=== PATIENT | female | born 1995 | race Two or more races ===

== ENCOUNTER 2020-11-25 10:30 | Day surgery (SDC) | payer OTHER | END 2020-11-25 20:10 | disposition home or self-care (01) | LOC: CIR.AMB 10:30 | PROVIDERS: ATTEND Obstetrics & Gynecology | DX: O02.1 Missed abortion (principal); Z20.822 Contact with and (suspected) exposure to COVID-19 ==

== ENCOUNTER 2021-07-28 09:35 | Emergency (ER) | payer OTHER ==
[~2021-07-28] VITALS: Ht 170.2 cm; Wt 96.6 kg
[2021-07-28] MEDS ORDERED: CIPRO500 MG PO (13:57)
== END 2021-07-28 14:58 | disposition home or self-care (01) ==
LOC: ER 09:35
DX: R30.0 Dysuria (principal); R10.2 Pelvic and perineal pain

== ENCOUNTER 2021-10-13 23:07 | Emergency (ER) | payer OTHER ==
[~2021-10-13] VITALS: Ht 170.2 cm; Wt 95.3 kg
[~2021-10-13 23:07] MED LIST: CIPRO500 MG PO
[2021-10-14] MEDS ORDERED: CEPHALEXIN500 MG PO (04:48)
== END 2021-10-14 05:28 | disposition home or self-care (01) ==
LOC: ER 23:07
DX: O20.0 Threatened abortion (principal); Z3A.08 8 weeks gestation of pregnancy

== ENCOUNTER 2021-11-15 21:15 | Emergency (ER) | payer OTHER ==
[~2021-11-15] VITALS: Ht 170.2 cm; Wt 96.6 kg
[~2021-11-15 21:15] MED LIST changes: +CEPHALEXIN500 MG PO
[2021-11-15] MEDS ORDERED: PROMETRIUM200 MG PO (21:26)
[2021-11-15] MEDS ORDERED: PRENA1 TRUE CO1 EACH PO (21:26)
[2021-11-15] MEDS ORDERED: FOLIC ACID0.8 M1 PO (21:26)
== END 2021-11-15 23:09 | disposition home or self-care (01) ==
LOC: ER 21:15
DX: O20.9 Hemorrhage in early pregnancy, unspecified (principal); Z3A.11 11 weeks gestation of pregnancy

== ENCOUNTER 2021-12-05 20:43 | Emergency (ER) | payer OTHER ==
[~2021-12-05] VITALS: Ht 170.2 cm; Wt 99.8 kg
[~2021-12-05 20:43] MED LIST changes: +FOLIC ACID0.8 M1 PO; +PRENA1 TRUE CO1 EACH PO; +PROMETRIUM200 MG PO
[2021-12-05] MEDS ORDERED: PRENATAL TABLE1 EAC2 PO (20:49)
== END 2021-12-05 22:51 | disposition home or self-care (01) ==
LOC: ER 20:43
DX: O20.8 Other hemorrhage in early pregnancy (principal); Z3A.15 15 weeks gestation of pregnancy; Z37.0 Single live birth

== ENCOUNTER 2022-11-21 12:29 | Outpatient (CLI) | payer OTHER ==
[~2022-11-21 12:29] MED LIST changes: +CETIRIZINE HCL10 MG; +CYCLOBENZAPRINE10 MG PO; +FUSION PLUS CA1 EACH PO; +MONTELUKAST SOD10 MG; +NAPR500T14 PO; +PRENA1 TRUE CO1 EACH; +PRENATAL TABLE1 EAC2 PO; +PRENATAL VITAM1 EAC7; +PROGESTERONE200 MG; +TRAZODONE HCL50 MG PO; +TYLENOL325 MG
== END 2022-11-21 14:00 | disposition home or self-care (01) ==
LOC: PRENATAL 12:29
PROVIDERS: ATTEND Obstetrics & Gynecology Maternal & Fetal Medicine
DX: O36.80X0 Pregnancy with inconclusive fetal viability, not applicable or unspecified (principal); O09.219 Supervision of pregnancy with history of pre-term labor, unspecified trimester; O26.879 Cervical shortening, unspecified trimester

== ENCOUNTER 2023-01-02 11:30 | Outpatient (CLI) | payer OTHER | END 2023-01-02 14:25 | disposition home or self-care (01) | LOC: PRENATAL 11:30 | PROVIDERS: ATTEND Obstetrics & Gynecology Maternal & Fetal Medicine | DX: O35.9XX0 Maternal care for (suspected) fetal abnormality and damage, unspecified, not applicable or unspecified (principal); O35.3XX0 Maternal care for (suspected) damage to fetus from viral disease in mother, not applicable or unspecified; O26.879 Cervical shortening, unspecified trimester; Z3A.18 18 weeks gestation of pregnancy ==

== ENCOUNTER 2023-01-30 14:31 | Outpatient (CLI) | payer OTHER | END 2023-01-30 15:35 | disposition home or self-care (01) | LOC: PRENATAL 14:31 | PROVIDERS: ATTEND Obstetrics & Gynecology Maternal & Fetal Medicine | DX: O26.849 Uterine size-date discrepancy, unspecified trimester (principal); O35.9XX0 Maternal care for (suspected) fetal abnormality and damage, unspecified, not applicable or unspecified; O26.879 Cervical shortening, unspecified trimester; O09.219 Supervision of pregnancy with history of pre-term labor, unspecified trimester; Z3A.22 22 weeks gestation of pregnancy ==

== ENCOUNTER 2023-04-10 10:18 | Outpatient (CLI) | payer OTHER | END 2023-04-10 11:25 | disposition home or self-care (01) | LOC: PRENATAL 10:18 | PROVIDERS: ATTEND Obstetrics & Gynecology Maternal & Fetal Medicine | DX: O26.849 Uterine size-date discrepancy, unspecified trimester (principal); O35.9XX0 Maternal care for (suspected) fetal abnormality and damage, unspecified, not applicable or unspecified; O26.879 Cervical shortening, unspecified trimester; O09.219 Supervision of pregnancy with history of pre-term labor, unspecified trimester; Z3A.32 32 weeks gestation of pregnancy ==